=== PATIENT | male | born 1985 | race Caucasian/White ===

== ENCOUNTER → 2016-04-11 | Outpatient (CLI) | payer OTHER ==
[2016-04-11 08:11] LABS: Basophils % (A) 0 %; CH 31.5; Eosinophils % (A) 1 %; HCT 40.9 % (39.0-53.0); HGB 13.9 gm/dL (13.0-17.5); Luc # (Auto) 0.12; Luc % (Auto) 3; Lymphocytes # (A) 1.9 k/uL (1.0-4.8); Lymphocytes % (A) 42 %; MCH 31.8 pg (25.0-35.0); MCHC 34.1 g/dL (31.0-37.0); MCV 93.3 fL (80.0-100.0); Mean Platelet Volume 8.3; Monocytes # (A) 0.4 k/uL (0-1.0); Monocytes % (A) 8 %; Neutrophils # (A) 2.1 k/uL (1.3-7.7); Neutrophils % (A) 47 %; RBC 4.38 m/uL (4.30-5.90); RDW 13.1 % (11.5-15.5); WBC 4.5 k/uL (3.8-10.6); WBC (Perox) 4.92
[2016-04-11 10:31] LABS: ALT 23 U/L (21-72); AST 23 U/L (17-59); Alkaline Phosphatase 53 U/L (38-126); Anion Gap 11 mmol/L; Bilirubin, Delta 0.3 mg/dL (0.0-0.2); Blood Urea Nitrogen 9 mg/dL (9-20); Calcium 8.7 mg/dL (8.4-10.2); Carbon Dioxide 27 mmol/L (22-30); Chloride 104 mmol/L (98-107); Glucose 91 mg/dL (74-99); Non-African American GFR(MDRD) >60 (>60 ml/min/1.73 sqM); Potassium 4.3 mmol/L (3.5-5.1); Sodium 142 mmol/L (137-145); Total Bilirubin 0.8 mg/dL (0.2-1.3); Total Protein 6.6 g/dL (6.3-8.2)
[2016-04-11 11:27] LABS: Prolactin 36.3 ng/mL (3.7-17.9)
== END | disposition home or self-care (01) ==
LOC: LABWHC1 07:43
PROVIDERS: ATTEND Psychiatry & Neurology Psychiatry
DX: T50.905A Adverse effect of unspecified drugs, medicaments and biological substances, initial encounter (principal)
CPT/HCPCS: 36415; 80048; 80076; 80164; 83036; 84146; 85025

== ENCOUNTER → 2016-04-14 | Outpatient (CLI) | payer OTHER | END | disposition home or self-care (01) | LOC: LABWHC1 08:10 | PROVIDERS: ATTEND Psychiatry & Neurology Psychiatry | DX: T50.905A Adverse effect of unspecified drugs, medicaments and biological substances, initial encounter (principal); Z79.899 Other long term (current) drug therapy | CPT/HCPCS: 36415; 80164 ==

== ENCOUNTER → 2016-04-17 | Outpatient (CLI) | payer OTHER | END | disposition home or self-care (01) | LOC: LABWHC1 08:32 | PROVIDERS: ATTEND Psychiatry & Neurology Psychiatry | DX: T50.905A Adverse effect of unspecified drugs, medicaments and biological substances, initial encounter (principal); F63.81 Intermittent explosive disorder; Z79.899 Other long term (current) drug therapy | CPT/HCPCS: 36415; 80164 ==

== ENCOUNTER → 2016-06-05 | Outpatient (CLI) | payer OTHER ==
[2016-06-05 08:29] LABS: Basophils # (A) 0.1 k/uL (0-0.2); Basophils % (A) 2 %; CH 32.1; CHCM 33.3; Eosinophils % (A) 1 %; HCT 44.9 % (39.0-53.0); HDW 2.63; HGB 14.5 gm/dL (13.0-17.5); Luc # (Auto) 0.08; Luc % (Auto) 2; Lymphocytes # (A) 1.8 k/uL (1.0-4.8); Lymphocytes % (A) 38 %; MCH 31.3 pg (25.0-35.0); MCHC 32.3 g/dL (31.0-37.0); MCV 96.7 fL (80.0-100.0); Mean Platelet Volume 7.7; Monocytes # (A) 0.3 k/uL (0-1.0); Monocytes % (A) 7 %; Neutrophils # (A) 2.4 k/uL (1.3-7.7); Neutrophils % (A) 51 %; RBC 4.64 m/uL (4.30-5.90); RDW 13.4 % (11.5-15.5); WBC 4.7 k/uL (3.8-10.6); WBC (Perox) 4.59
[2016-06-05 08:59] LABS: ALT 24 U/L (21-72); AST 31 U/L (17-59); Alkaline Phosphatase 57 U/L (38-126); Anion Gap 11 mmol/L; Blood Urea Nitrogen 9 mg/dL (9-20); Calcium 9.3 mg/dL (8.4-10.2); Carbon Dioxide 27 mmol/L (22-30); Chloride 104 mmol/L (98-107); Glucose 103 mg/dL (74-99); Non-African American GFR(MDRD) >60 (>60 ml/min/1.73 sqM); Sodium 142 mmol/L (137-145); Total Bilirubin 0.8 mg/dL (0.2-1.3); Total Protein 7.2 g/dL (6.3-8.2)
[2016-06-05 11:45] LABS: Hemoglobin A1C 5.2 % (4.2-6.1)
== END | disposition home or self-care (01) ==
LOC: LABWHC1 08:10
PROVIDERS: ATTEND Psychiatry & Neurology Psychiatry
DX: T50.905A Adverse effect of unspecified drugs, medicaments and biological substances, initial encounter (principal)
CPT/HCPCS: 36415; 80053; 83036; 84443; 85025

== ENCOUNTER 2016-06-21 18:24 | Inpatient (IN) | payer MEDICAID, OTHER ==
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
[2016-06-22] MEDS ORDERED: MAGNESIUM HYDROXIDE 2,400 MG/10 ML CUP PO PRN (01:24)
[2016-06-22] MEDS ORDERED: LORazepam 1 MG TAB PO PRN (01:24)
[2016-06-22] MEDS ORDERED: ZIPRASIDONE 20 MG VIAL IM PRN (01:24)
[2016-06-22] MEDS ORDERED: MAG HYDROX/AL HYDROX/SIMETH 30 ML CUP PO PRN (01:24)
[2016-06-22] MEDS ORDERED: ACETAMINOPHEN TAB 325 MG TAB PO PRN (01:24)
[2016-06-22] MEDS ORDERED: DOCUSATE 100 MG CAP PO PRN (01:31)
[2016-06-22] MEDS: DIVALPROEX ER 250 MG TAB.ER.24H PO SCH (09:29)
[2016-06-22] MEDS: PARoxetine 10 MG TAB PO SCH (09:29)
[2016-06-22] MEDS: BENZTROPINE MESYLATE 0.5 MG TAB PO SCH ×2 (09:29→20:43)
[2016-06-22] MEDS: risperiDONE 1 MG TAB PO SCH (09:30)
[2016-06-22] MEDS: PROPRANOLOL 40 MG TAB PO SCH ×3 (09:30→20:42)
[2016-06-22] MEDS: DIVALPROEX ER 500 MG TAB.ER.24H PO SCH ×2 (09:31→20:43)
[2016-06-22 11:18] LABS: Basophils % (A) 0 %; CH 31.8; CHCM 33.2; Eosinophils % (A) 0 %; HCT 42.9 % (39.0-53.0); HDW 2.61; Luc # (Auto) 0.14; Luc % (Auto) 3; Lymphocytes # (A) 1.6 k/uL (1.0-4.8); Lymphocytes % (A) 31 %; MCH 31.6 pg (25.0-35.0); MCHC 32.8 g/dL (31.0-37.0); MCV 96.3 fL (80.0-100.0); Mean Platelet Volume 7.8; Monocytes # (A) 0.5 k/uL (0-1.0); Monocytes % (A) 9 %; Neutrophils % (A) 57 %; RBC 4.45 m/uL (4.30-5.90); RDW 13.4 % (11.5-15.5); WBC 5.3 k/uL (3.8-10.6); WBC (Perox) 5.56
[2016-06-22 11:28] LABS: ALT 25 U/L (21-72); AST 24 U/L (17-59); Alkaline Phosphatase 51 U/L (38-126); Anion Gap 9 mmol/L; Blood Urea Nitrogen 12 mg/dL (9-20); Calcium 9.1 mg/dL (8.4-10.2); Carbon Dioxide 27 mmol/L (22-30); Chloride 105 mmol/L (98-107); Glucose 95 mg/dL (74-99); Non-African American GFR(MDRD) >60 (>60 ml/min/1.73 sqM); Potassium 4.1 mmol/L (3.5-5.1); Sodium 141 mmol/L (137-145)
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
[2016-06-22] MEDS: risperiDONE 2 MG TAB PO SCH (16:37)
[2016-06-22] MEDS: QUEtiapine 100 MG TAB PO SCH (20:43)
[2016-06-23] MEDS: DIVALPROEX ER 500 MG TAB.ER.24H PO SCH ×2 (09:09→21:06)
[2016-06-23] MEDS: DIVALPROEX ER 250 MG TAB.ER.24H PO SCH (09:10)
[2016-06-23] MEDS: PROPRANOLOL 40 MG TAB PO SCH ×3 (09:10→21:06)
[2016-06-23] MEDS: risperiDONE 1 MG TAB PO SCH (09:10)
[2016-06-23] MEDS: BENZTROPINE MESYLATE 0.5 MG TAB PO SCH ×2 (09:10→21:07)
[2016-06-23] MEDS: PARoxetine 10 MG TAB PO SCH (09:10)
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
[2016-06-23] MEDS: risperiDONE 2 MG TAB PO SCH (16:24)
[2016-06-23] MEDS: QUEtiapine 100 MG TAB PO SCH (21:07)
[2016-06-24] MEDS: PROPRANOLOL 40 MG TAB PO SCH ×3 (09:03→21:40)
[2016-06-24] MEDS: BENZTROPINE MESYLATE 0.5 MG TAB PO SCH ×2 (09:03→21:40)
[2016-06-24] MEDS: DIVALPROEX ER 500 MG TAB.ER.24H PO SCH ×2 (09:06→22:03)
[2016-06-24] MEDS: risperiDONE 1 MG TAB PO SCH (09:06)
[2016-06-24] MEDS: DIVALPROEX ER 250 MG TAB.ER.24H PO SCH (09:06)
[2016-06-24] MEDS: PARoxetine 10 MG TAB PO SCH (09:06)
[2016-06-24] MEDS ORDERED: BACITRACIN OINT 1 EACH PACKET TOPICAL ONE ×2 (09:20)
[2016-06-24] MEDS: BACITRACIN 500 UNIT/GM OINT 28.4 GM TUBE TOPICAL PRN (10:45)
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
[2016-06-24] MEDS: risperiDONE 2 MG TAB PO SCH (16:02)
[2016-06-24] MEDS: QUEtiapine 100 MG TAB PO SCH (21:40)
[2016-06-25] MEDS: BENZTROPINE MESYLATE 0.5 MG TAB PO SCH ×2 (09:11→20:41)
[2016-06-25] MEDS: PROPRANOLOL 40 MG TAB PO SCH ×3 (09:11→20:41)
[2016-06-25] MEDS: risperiDONE 1 MG TAB PO SCH (09:12)
[2016-06-25] MEDS: PARoxetine 10 MG TAB PO SCH (09:13)
[2016-06-25] MEDS: DIVALPROEX ER 250 MG TAB.ER.24H PO SCH (09:13)
[2016-06-25] MEDS: DIVALPROEX ER 500 MG TAB.ER.24H PO SCH ×2 (09:14→20:41)
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
[2016-06-25] MEDS: risperiDONE 2 MG TAB PO SCH (16:26)
[2016-06-25] MEDS: QUEtiapine 100 MG TAB PO SCH (20:41)
[2016-06-26] MEDS: DIVALPROEX ER 500 MG TAB.ER.24H PO SCH ×2 (09:40→20:43)
[2016-06-26] MEDS: risperiDONE 1 MG TAB PO SCH (09:40)
[2016-06-26] MEDS: DIVALPROEX ER 250 MG TAB.ER.24H PO SCH (09:40)
[2016-06-26] MEDS: BENZTROPINE MESYLATE 0.5 MG TAB PO SCH ×2 (09:40→20:43)
[2016-06-26] MEDS: PARoxetine 10 MG TAB PO SCH (09:40)
[2016-06-26] MEDS: PROPRANOLOL 40 MG TAB PO SCH ×3 (09:41→20:43)
--- NOTE | 2016-06-26 13:24 | P.PN ---
Progress Note - Text SUBJECTIVE: I reviewed the medical record, interviewed Mr. Ac and discuss his treatment and treatment plan during team meeting. He was distressed during interview and perseverated on not being able to return to work [employer] home. He repeatedly asked where he would be living and when he would be discharged. At times he became acutely distressed, began sobbing and rocking back and forth in his chair. He briefly appeared to become angry and I felt concerned that he may act out but he kept his behavior control. OBJECTIVE: He presented as a casually groomed tall 30-year-old male wearing pajamas and a nightgown. He carried 2 books and the stuffed curious René doll in his arms. He did not make eye contact and times did not appear to attend to the interview. He drooled during the interview and the drooling worsened when he became more distressed. He was intermittently agitated and restless. His speech was spontaneous, dysarthric and difficult to understand. His affect was labile and at times intense. He cried intermittently during the interview. He did not express suicidal ideation, wishes or homicidal ideation. He ruminated about placement and his living situations. His thinking was concrete and associations were not fully coherent and logical. He did not appear to be responding to internal stimuli. He attends therapeutic groups and activities. He slept 6 hours last night. ASSESSMENT: He kept his behavior and control and has had no periods of aggression. He is distressed that he may not return to his [facility] home. PLAN: Continue inpatient hospitalization pending disposition. Continue his psychotropic medications: Cogentin 0.5 mg at 8:00 and 21:00, Depakote ER 250 mg at 8:00 1,000 mg at 8:00 and 21:00, lorazepam 1 mg by mouth 3 times a day when necessary agitation, Paxil 30 mg daily 8:00, Inderal 80 mg by mouth twice a day and 40 mg by mouth at 16:00, Seroquel 100 mg at bedtime, Risperdal 1 mg daily at 8:00 and 2 mg by mouth daily at 16:00. Continue suicide precautions with 15 minute checks. Encourage participation in therapeutic groups and activities. Evaluate clinical status response to treatment on a daily basis.
[2016-06-26] MEDS: risperiDONE 2 MG TAB PO SCH (16:13)
[2016-06-26] MEDS: QUEtiapine 100 MG TAB PO SCH (20:44)
[2016-06-26] MEDS: BACITRACIN 500 UNIT/GM OINT 28.4 GM TUBE TOPICAL PRN (21:32)
[2016-06-27] MEDS: risperiDONE 1 MG TAB PO SCH (08:37)
[2016-06-27] MEDS: BENZTROPINE MESYLATE 0.5 MG TAB PO SCH ×2 (08:37→21:39)
[2016-06-27] MEDS: DIVALPROEX ER 500 MG TAB.ER.24H PO SCH ×2 (08:37→21:38)
[2016-06-27] MEDS: PARoxetine 10 MG TAB PO SCH (08:37)
[2016-06-27] MEDS: PROPRANOLOL 40 MG TAB PO SCH ×3 (08:37→21:38)
[2016-06-27] MEDS: DIVALPROEX ER 250 MG TAB.ER.24H PO SCH (08:37)
[2016-06-27 11:11] VITALS: BMI 30.2
--- NOTE | 2016-06-27 13:46 | P.PN ---
Progress Note - Text SUBJECTIVE: The medical record, interviewed Mr. Ac and discussed his treatment and treatment plan during team meeting. He denied problems and concerns of and wishing to "go home". She did not cry during our interview as he did yesterday. OBJECTIVE: He presented as a casually groomed tall 30-year-old male wearing his pajamas and nightgown. He carried 2 books and the stuffed curious René doll in his arms. He did not make eye contact but appeared to attend to the interview. He drooled during the interview. His gait was slow and shuffling. He was not agitated or restless. He had no abnormal involuntary movements.. His speech was spontaneous, dysarthric and difficult to understand. His affect was depressed but reactive. He did not express suicidal ideation, wishes or homicidal ideation. He ruminated about placement and his living situations. His thinking was concrete and associations were not fully coherent and logical. He did not appear to be responding to internal stimuli. He is shown episodes of behavioral dyscontrol, agitation or aggression of last 24 hours. According to the [facility] liaison a [facility] home bed is not available. ASSESSMENT: He has kept his behavior and control and has shown no periods of aggression, agitation or assaultive behavior. He is cognitively limited but pleasant and participates in activities. PLAN: Continue inpatient hospitalization pending disposition. Continue his psychotropic medications: Cogentin 0.5 mg at 8:00 and 21:00, Depakote ER 250 mg at 8:00 1,000 mg at 8:00 and 21:00, lorazepam 1 mg by mouth 3 times a day when necessary agitation, Paxil 30 mg daily 8:00, Inderal 80 mg by mouth twice a day and 40 mg by mouth at 16:00, Seroquel 100 mg at bedtime, Risperdal 1 mg daily at 8:00 and 2 mg by mouth daily at 16:00. Continue suicide precautions with 15 minute checks. Encourage participation in therapeutic groups and activities. Evaluate clinical status response to treatment on a daily basis.
[2016-06-27] MEDS: risperiDONE 2 MG TAB PO SCH (16:29)
[2016-06-27] MEDS: QUEtiapine 100 MG TAB PO SCH (21:39)
--- NOTE | 2016-06-28 09:03 | P.PN ---
Progress Note - Text Interval history: The patient is found in the hallway he follows me to an interview room. He reports his mood is fine. He reports no feelings of anger or irritability. He feels that he slept throughout the night appetite is stable. He is concerned asked to where he will be discharged. He states he has not been participating in any self-injurious behavior such as biting himself. Mental status exam: The patient is a male dressed in pajamas and a bathrobe. He is carrying his belongings with him. He appears tired but not lethargic. He is noted to drool during the session. He reports no thoughts of self injury or suicidal ideation intent or plan he reports no homicidal ideation intent or plan. He is endorsing no auditory or visual hallucinations. He states he feels safe in the hospital. He seated calmly in the chair he does not appear hypomanic or manic. He does appear to be intellectually impaired thought process is fairly concrete. Insight and judgment is chronically impaired. Affect is blunted he demonstrates no verbal or physical aggressiveness. Plan: The patient will continue on his current medications he is on several psychotropics. Vital signs reviewed they are on the lower end of normal likely due to the propranolol. It appears that he has been able to successfully refrain from any aggressive behavior lately. We will continue to monitor him for safety.
[2016-06-28] MEDS: BENZTROPINE MESYLATE 0.5 MG TAB PO SCH ×2 (09:34→20:38)
[2016-06-28] MEDS: risperiDONE 1 MG TAB PO SCH (09:35)
[2016-06-28] MEDS: DIVALPROEX ER 250 MG TAB.ER.24H PO SCH (09:35)
[2016-06-28] MEDS: PROPRANOLOL 40 MG TAB PO SCH ×3 (09:35→20:38)
[2016-06-28] MEDS: DIVALPROEX ER 500 MG TAB.ER.24H PO SCH ×2 (09:35→20:38)
[2016-06-28] MEDS: PARoxetine 10 MG TAB PO SCH (10:31)
[2016-06-28] MEDS: BACITRACIN 500 UNIT/GM OINT 28.4 GM TUBE TOPICAL PRN ×2 (10:33→15:54)
[2016-06-28 12:57] LABS: Appearance,Urine Clear (Clear); Bilirubin,Urine Negative (Negative); Glucose,Urine (UA) Negative (Negative); Ketones,Urine Negative (Negative); Leukocyte Esterase,Urine Negative (Negative); Nitrite,Urine Negative (Negative); Protein,Urine Negative (Negative); UA Billing (MACRO vs. MICRO) CHEM; Urobilinogen,Urine <2.0 mg/dL (<2.0)
[2016-06-28] MEDS: risperiDONE 2 MG TAB PO SCH (15:44)
[2016-06-28] MEDS: QUEtiapine 100 MG TAB PO SCH (20:38)
[2016-06-29] MEDS: BENZTROPINE MESYLATE 0.5 MG TAB PO SCH (09:52)
[2016-06-29] MEDS: PARoxetine 10 MG TAB PO SCH (09:54)
[2016-06-29] MEDS: DIVALPROEX ER 500 MG TAB.ER.24H PO SCH ×2 (09:54→21:32)
[2016-06-29] MEDS: DIVALPROEX ER 250 MG TAB.ER.24H PO SCH (09:54)
[2016-06-29] MEDS: risperiDONE 1 MG TAB PO SCH (09:55)
[2016-06-29] MEDS: PROPRANOLOL 40 MG TAB PO SCH ×3 (09:55→21:32)
--- NOTE | 2016-06-29 10:14 | P.PN ---
Progress Note - Text Interval history: The patient is found in his room he follows me to an interview room. He reports having no symptoms and asks if we have found him placement. The patient was observed ambulating in the hallway earlier this morning. He has been compliant with medication. He has no questions regarding medication. Vital signs reviewed they are within normal limits. Mental status exam: The patient is an overweight male he is dressed in pajamas and wearing a bathrobe over top he is carrying a book a curious René stuffed animal and a couple of water. Eye contact is intermittent he often looks down. He appears tired this morning. He is actively drooling during our session. He has no spontaneous speech but does answer questions briefly. He is endorsing no symptoms of psychosis he does not appear hypomanic or manic. He seated calmly in the chair there is a mild element of psychomotor slowing he demonstrates no verbal or physical aggressiveness. Insight and judgment are chronically impaired secondary to intellectual disability. Plan: The patient will continue on his current medication I will titrate the Cogentin to 1 mg twice daily. We will continue monitoring him for safety and encourage participation in the milieu.
[2016-06-29] MEDS: risperiDONE 2 MG TAB PO SCH (16:13)
[2016-06-29] MEDS: QUEtiapine 100 MG TAB PO SCH (21:32)
[2016-06-29] MEDS: BENZTROPINE MESYLATE 1 MG TAB PO SCH (21:33)
[2016-06-30] MEDS: DIVALPROEX ER 250 MG TAB.ER.24H PO SCH (09:32)
[2016-06-30] MEDS: DIVALPROEX ER 500 MG TAB.ER.24H PO SCH ×2 (09:32→20:43)
[2016-06-30] MEDS: risperiDONE 1 MG TAB PO SCH (09:32)
[2016-06-30] MEDS: PARoxetine 10 MG TAB PO SCH (09:32)
[2016-06-30] MEDS: BENZTROPINE MESYLATE 1 MG TAB PO SCH ×2 (09:33→20:43)
[2016-06-30] MEDS: PROPRANOLOL 40 MG TAB PO SCH ×3 (09:33→20:44)
--- NOTE | 2016-06-30 13:07 | P.PN ---
Progress Note - Text SUBJECTIVE: I reviewed the medical record, interviewed Mr. Whitmore and discuss his treatment and treatment plan during team meeting. His only concern remains discharge and again asked what he would "go home". He appeared satisfied with my answer that we are awaiting [facility] to to find him a new skilled nursing. OBJECTIVE: He presented as a casually groomed tall 30-year-old male wearing his pajamas and nightgown. He carried 1 book and the stuffed curious René doll in his arms. He did not make eye contact but appeared to attend to the interview. He drooled during the interview. His gait was slow and shuffling. He was not agitated or restless. He had no abnormal involuntary movements.. His speech was spontaneous, dysarthric and difficult to understand. His affect was depressed but reactive. He did not express suicidal ideation, wishes or homicidal ideation. He ruminated about placement and his living situations. His thinking was concrete and associations were not fully coherent and logical. He did not appear to be responding to internal stimuli. He is shown episodes of behavioral dyscontrol, agitation or aggression of last 24 hours. According to the [facility] liaison a [facility] home bed still is not available. ASSESSMENT: He has kept his behavior and control and has shown no periods of aggression, agitation or assaultive behavior. He is cognitively limited but pleasant and participates in activities. PLAN: Continue inpatient hospitalization pending disposition. Continue his psychotropic medications: Cogentin 0.5 mg at 8:00 and 21:00, Depakote ER 250 mg at 8:00 1,000 mg at 8:00 and 21:00, lorazepam 1 mg by mouth 3 times a day when necessary agitation, Paxil 30 mg daily 8:00, Inderal 80 mg by mouth twice a day and 40 mg by mouth at 16:00, Seroquel 100 mg at bedtime, Risperdal 1 mg daily at 8:00 and 2 mg by mouth daily at 16:00. Continue suicide precautions with 15 minute checks. Encourage participation in therapeutic groups and activities. Evaluate clinical status response to treatment on a daily basis.
[2016-06-30] MEDS: QUEtiapine 100 MG TAB PO SCH (20:44)
[2016-07-01 06:33] VITALS: RESP 16
[2016-07-01] MEDS: PROPRANOLOL 40 MG TAB PO SCH ×3 (10:03→21:47)
[2016-07-01] MEDS: risperiDONE 1 MG TAB PO SCH (10:06)
[2016-07-01] MEDS: PARoxetine 10 MG TAB PO SCH (10:06)
[2016-07-01] MEDS: DIVALPROEX ER 500 MG TAB.ER.24H PO SCH ×2 (10:06→21:47)
[2016-07-01] MEDS: DIVALPROEX ER 250 MG TAB.ER.24H PO SCH (10:07)
[2016-07-01] MEDS: BENZTROPINE MESYLATE 1 MG TAB PO SCH ×2 (10:07→21:47)
--- NOTE | 2016-07-01 13:07 | P.PN ---
Progress Note - Text SUBJECTIVE: I reviewed the medical record, interviewed Mr. Ac and discuss his treatment and treatment plan during team meeting. His again asked what he would "go home". He appeared satisfied with my answer that we are awaiting [facility] to to find him a new [place] [facility] [place] facility. OBJECTIVE: He presented as a casually groomed tall 30-year-old male wearing his pajamas and nightgown. He carried 1 book and the stuffed curious René doll in his arms. He did not make eye contact but appeared to attend to the interview. He drooled during the interview. His gait was slow and shuffling. He was not agitated or restless. He had no abnormal involuntary movements.. His speech was spontaneous, dysarthric and difficult to understand. His affect was depressed but reactive. He did not express suicidal ideation, wishes or homicidal ideation. He ruminated about placement and his living situations. His thinking was concrete and associations were not fully coherent and logical. He did not appear to be responding to internal stimuli. He is shown episodes of behavioral dyscontrol, agitation or aggression of last 24 hours. . ASSESSMENT: He has kept his behavior and control and has shown no periods of aggression, agitation or assaultive behavior. He is cognitively limited but pleasant and participates in activities. PLAN: Continue inpatient hospitalization pending disposition. Continue his psychotropic medications: Cogentin 0.5 mg at 8:00 and 21:00, Depakote ER 250 mg at 8:00 1,000 mg at 8:00 and 21:00, lorazepam 1 mg by mouth 3 times a day when necessary agitation, Paxil 30 mg daily 8:00, Inderal 80 mg by mouth twice a day and 40 mg by mouth at 16:00, Seroquel 100 mg at bedtime, Risperdal 1 mg daily at 8:00 and 2 mg by mouth daily at 16:00. Continue suicide precautions with 15 minute checks. Encourage participation in therapeutic groups and activities. Evaluate clinical status response to treatment on a daily basis.
[2016-07-01] MEDS: risperiDONE 2 MG TAB PO SCH (18:02)
[2016-07-01] MEDS: QUEtiapine 100 MG TAB PO SCH (21:48)
[2016-07-02] MEDS: PROPRANOLOL 40 MG TAB PO SCH ×3 (09:24→21:28)
[2016-07-02] MEDS: DIVALPROEX ER 500 MG TAB.ER.24H PO SCH ×2 (09:26→20:44)
[2016-07-02] MEDS: DIVALPROEX ER 250 MG TAB.ER.24H PO SCH (09:26)
[2016-07-02] MEDS: PARoxetine 10 MG TAB PO SCH (09:26)
[2016-07-02] MEDS: risperiDONE 1 MG TAB PO SCH (09:26)
[2016-07-02] MEDS: BENZTROPINE MESYLATE 1 MG TAB PO SCH ×2 (09:28→20:44)
--- NOTE | 2016-07-02 13:33 | P.PN ---
Progress Note - Text SUBJECTIVE: I reviewed the medical record, interviewed Quincy and discuss his treatment and treatment plan during team meeting. He expressed frustration over continued hospitalization. He wishes to be discharged and returned "home" . He repeatedly asked me when he be discharged. OBJECTIVE: Appetite presented as a casually groomed 30-year-old male dressed in pajamas and a bathrobe. He was pleasant on approach and only made intermittent eye contact. He had no distinguishing features or prominent physical abnormalities. He had a blunted facial expression. He showed psychomotor retardation. As in prior interviews, he told his. His speech was not spontaneous. His affect was blunted but stable. He denied suicidal ideation or wishes. He did not express feelings of helplessness, hopelessness or worthlessness. He did not express phobias, ideas reference or paranoid ideation. His thinking was concrete and associations are fully coherent or logical. He showed no episodes of behavioral dyscontrol. ASSESSMENT: He is impaired as a result of his intellectual disability. He has difficulty understanding the reasons that we are unable to discharge him. PLAN: Continue inpatient hospitalization pending disposition. Continue his psychotropic medications: Cogentin 0.5 mg at 8:00 and 21:00, Depakote ER 250 mg at 8:00 1,000 mg at 8:00 and 21:00, lorazepam 1 mg by mouth 3 times a day when necessary agitation, Paxil 30 mg daily 8:00, Inderal 80 mg by mouth twice a day and 40 mg by mouth at 16:00, Seroquel 100 mg at bedtime, Risperdal 1 mg daily at 8:00 and 2 mg by mouth daily at 16:00. Continue suicide precautions with 15 minute checks. Encourage participation in therapeutic groups and activities. Evaluate clinical status response to treatment on a daily basis.
[2016-07-02] MEDS: risperiDONE 2 MG TAB PO SCH (16:56)
[2016-07-02] MEDS: QUEtiapine 100 MG TAB PO SCH (20:44)
[2016-07-03] MEDS: PARoxetine 10 MG TAB PO SCH (09:41)
[2016-07-03] MEDS: BENZTROPINE MESYLATE 1 MG TAB PO SCH ×2 (09:42→21:34)
[2016-07-03] MEDS: DIVALPROEX ER 250 MG TAB.ER.24H PO SCH (09:42)
[2016-07-03] MEDS: PROPRANOLOL 40 MG TAB PO SCH ×3 (09:42→21:34)
[2016-07-03] MEDS: risperiDONE 1 MG TAB PO SCH (09:42)
[2016-07-03] MEDS: DIVALPROEX ER 500 MG TAB.ER.24H PO SCH ×2 (10:04→21:34)
--- NOTE | 2016-07-03 13:43 | P.PN ---
Progress Note - Text SUBJECTIVE: I reviewed the medical record, interviewed Max and discuss his treatment and treatment plan during team meeting. He was excited because he thought he was to be discharged today. OBJECTIVE: He presented as a casually groomed 30-year-old male dressed in pajamas and a bathrobe. He was pleasant on approach and only made intermittent eye contact. He had no distinguishing features or prominent physical abnormalities. He had a blunted facial expression. He showed psychomotor retardation. As in prior interviews, he told his. His speech was not spontaneous. His affect was blunted but stable. He denied suicidal ideation or wishes. He did not express feelings of helplessness, hopelessness or worthlessness. He did not express phobias, ideas reference or paranoid ideation. His thinking was concrete and associations are fully coherent or logical. He showed no episodes of behavioral dyscontrol. The [facility] liaison had no update on placement. ASSESSMENT: He is impaired as a result of his intellectual disability. He has difficulty understanding the reasons that we are unable to discharge him. PLAN: Continue inpatient hospitalization pending disposition. Continue his psychotropic medications: Cogentin 0.5 mg at 8:00 and 21:00, Depakote ER 250 mg at 8:00 1,000 mg at 8:00 and 21:00, lorazepam 1 mg by mouth 3 times a day when necessary agitation, Paxil 30 mg daily 8:00, Inderal 80 mg by mouth twice a day and 40 mg by mouth at 16:00, Seroquel 100 mg at bedtime, Risperdal 1 mg daily at 8:00 and 2 mg by mouth daily at 16:00. Continue suicide precautions with 15 minute checks. Encourage participation in therapeutic groups and activities. Evaluate clinical status response to treatment on a daily basis.
[2016-07-03] MEDS: risperiDONE 2 MG TAB PO SCH (17:37)
[2016-07-03] MEDS: QUEtiapine 100 MG TAB PO SCH (21:34)
[2016-07-04 07:03] VITALS: TEMP 97.8
[2016-07-04] MEDS: DIVALPROEX ER 250 MG TAB.ER.24H PO SCH (09:26)
[2016-07-04] MEDS: DIVALPROEX ER 500 MG TAB.ER.24H PO SCH (09:26)
[2016-07-04] MEDS: risperiDONE 1 MG TAB PO SCH (09:27)
[2016-07-04] MEDS: BENZTROPINE MESYLATE 1 MG TAB PO SCH (09:27)
[2016-07-04] MEDS: PROPRANOLOL 40 MG TAB PO SCH (09:27)
[2016-07-04] MEDS: PARoxetine 10 MG TAB PO SCH (09:27)
[2016-07-04 09:30] VITALS: BP 118/63; PULSE 83
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
== END 2016-07-04 11:29 | disposition home or self-care (01) | DRG 883 ==
LOC: EC 18:24 → 3MHU 22:54
PROVIDERS: ADMIT Psychiatry & Neurology Psychiatry; ATTEND Psychiatry & Neurology Psychiatry
DX: F63.81 Intermittent explosive disorder (principal); F72 Severe intellectual disabilities; F90.9 Attention-deficit hyperactivity disorder, unspecified type; K59.09 Other constipation; Q99.2 Fragile X chromosome; S60.512A Abrasion of left hand, initial encounter; Z79.899 Other long term (current) drug therapy
CPT/HCPCS: 80053; 80164; 80306; 81003; 82075; 84443; 85025

== ENCOUNTER → 2019-12-07 | Outpatient (CLI) | payer OTHER | END | disposition home or self-care (01) | LOC: LABWHC1 13:40 | PROVIDERS: ATTEND Family Medicine | DX: Z03.818 Encounter for observation for suspected exposure to other biological agents ruled out (principal) | CPT/HCPCS: U0003; C9803 ==

== ENCOUNTER 2021-07-06 15:00 | Emergency (ER) | payer OTHER ==
[2021-07-06 15:57] VITALS: BP 102/68; PULSE 97; RESP 16; TEMP 97.9
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
== END 2021-07-06 20:07 | disposition home or self-care (01) ==
LOC: EC 15:00 → EEVIPCON 15:00 → SUPCPDRO 15:00 → EC 20:07
DX: R45.4 Irritability and anger (principal); Z20.822 Contact with and (suspected) exposure to COVID-19
CPT/HCPCS: 36415; 80164; 82075; 87635; 99284

== ENCOUNTER 2021-07-10 15:09 | Emergency (ER) | payer OTHER ==
[2021-07-10] MEDS ORDERED: BACITRACIN OINT 1 EACH PACKET TOPICAL ONE (15:55)
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
[2021-07-10] MEDS ORDERED: PROPRANOLOL 40 MG TAB PO PRN (20:00)
[2021-07-10] MEDS: DIVALPROEX ER 500 MG TAB.ER.24H PO SCH (21:45)
[2021-07-10] MEDS: DESMOPRESSIN 0.2 MG TAB PO SCH (21:45)
[2021-07-10] MEDS: cloZAPine 100 MG TAB PO SCH (21:46)
[2021-07-10] MEDS: LORazepam 1 MG TAB PO SCH (21:47)
[2021-07-10] MEDS: DOCUSATE 100 MG CAP PO SCH (21:47)
[2021-07-10] MEDS: GLYCOPYRROLATE 2 MG PO SCH (21:48)
[2021-07-11] MEDS: GLYCOPYRROLATE 2 MG PO SCH (08:43)
[2021-07-11] MEDS: DIVALPROEX ER 500 MG TAB.ER.24H PO SCH ×2 (16:15→21:40)
[2021-07-11] MEDS: PARoxetine 10 MG TAB PO SCH (16:15)
[2021-07-11] MEDS: LORazepam 1 MG TAB PO SCH ×2 (16:15→21:40)
[2021-07-11] MEDS: DOCUSATE 100 MG CAP PO SCH (21:38)
[2021-07-11] MEDS: cloZAPine 100 MG TAB PO SCH ×2 (21:39→22:16)
[2021-07-11] MEDS: DESMOPRESSIN 0.2 MG TAB PO SCH (22:16)
[2021-07-12] MEDS: GLYCOPYRROLATE 2 MG PO SCH (05:50)
[2021-07-12] MEDS: LORazepam 1 MG TAB PO SCH ×4 (05:51→17:56)
[2021-07-12 05:52] LABS: Glucose,Whole Blood 93 mg/dL (75-99)
[2021-07-12] MEDS: PARoxetine 10 MG TAB PO SCH (11:37)
[2021-07-12] MEDS: DIVALPROEX ER 500 MG TAB.ER.24H PO SCH (11:38)
[2021-07-13] MEDS: DESMOPRESSIN 0.2 MG TAB PO SCH (01:11)
[2021-07-13] MEDS: DOCUSATE 100 MG CAP PO SCH ×2 (01:11→20:47)
[2021-07-13] MEDS: PARoxetine 10 MG TAB PO SCH (01:12)
[2021-07-13] MEDS: LORazepam 1 MG TAB PO SCH ×3 (01:12→20:47)
[2021-07-13] MEDS: DIVALPROEX ER 500 MG TAB.ER.24H PO SCH ×3 (01:12→20:47)
[2021-07-13] MEDS: GLYCOPYRROLATE 2 MG PO SCH ×2 (08:38→09:26)
[2021-07-13] MEDS: cloZAPine 100 MG TAB PO SCH (20:47)
[2021-07-14] MEDS: DESMOPRESSIN 0.2 MG TAB PO SCH ×2 (07:15→21:56)
[2021-07-14] MEDS: GLYCOPYRROLATE 2 MG PO SCH ×2 (07:16→09:48)
[2021-07-14] MEDS: LORazepam 1 MG TAB PO SCH ×4 (07:29→21:56)
[2021-07-14] MEDS: PARoxetine 10 MG TAB PO SCH (09:47)
[2021-07-14] MEDS: DIVALPROEX ER 500 MG TAB.ER.24H PO SCH ×2 (09:48→21:55)
[2021-07-14] MEDS: cloZAPine 100 MG TAB PO SCH (21:56)
[2021-07-14] MEDS: DOCUSATE 100 MG CAP PO SCH (21:56)
[2021-07-15] MEDS: GLYCOPYRROLATE 2 MG PO SCH (09:00)
[2021-07-15] MEDS: PARoxetine 10 MG TAB PO SCH (09:41)
[2021-07-15] MEDS: DIVALPROEX ER 500 MG TAB.ER.24H PO SCH ×2 (09:41→20:42)
[2021-07-15] MEDS: LORazepam 1 MG TAB PO SCH ×2 (18:12→20:42)
[2021-07-15] MEDS: cloZAPine 100 MG TAB PO SCH (20:41)
[2021-07-15] MEDS: DOCUSATE 100 MG CAP PO SCH (20:42)
[2021-07-15] MEDS: DESMOPRESSIN 0.2 MG TAB PO SCH (22:40)
[2021-07-16] MEDS: GLYCOPYRROLATE 2 MG PO SCH ×3 (00:49→07:56)
[2021-07-16] MEDS ORDERED: PROPRANOLOL 40 MG TAB PO PRN (08:27)
[2021-07-16] MEDS: LORazepam 1 MG TAB PO SCH ×3 (08:37→20:54)
[2021-07-16] MEDS: PARoxetine 10 MG TAB PO SCH (08:37)
[2021-07-16] MEDS: DIVALPROEX ER 500 MG TAB.ER.24H PO SCH ×2 (08:38→20:55)
[2021-07-16] MEDS: cloZAPine 100 MG TAB PO SCH (20:54)
[2021-07-16] MEDS: DOCUSATE 100 MG CAP PO SCH (20:54)
[2021-07-16] MEDS: DESMOPRESSIN 0.2 MG TAB PO SCH (21:59)
[2021-07-17] MEDS: LORazepam 1 MG TAB PO SCH ×3 (08:12→19:52)
[2021-07-17] MEDS: DIVALPROEX ER 500 MG TAB.ER.24H PO SCH ×2 (08:13→19:52)
[2021-07-17] MEDS: PARoxetine 10 MG TAB PO SCH (08:13)
[2021-07-17] MEDS: GLYCOPYRROLATE 2 MG PO SCH ×2 (08:16→19:27)
[2021-07-17] MEDS: DOCUSATE 100 MG CAP PO SCH (19:52)
[2021-07-17] MEDS: cloZAPine 100 MG TAB PO SCH (19:52)
[2021-07-17] MEDS: DESMOPRESSIN 0.2 MG TAB PO SCH (19:52)
[2021-07-18] MEDS: PARoxetine 10 MG TAB PO SCH (08:03)
[2021-07-18] MEDS: LORazepam 1 MG TAB PO SCH ×3 (08:03→20:18)
[2021-07-18] MEDS: DIVALPROEX ER 500 MG TAB.ER.24H PO SCH ×2 (08:03→20:18)
[2021-07-18] MEDS: GLYCOPYRROLATE 2 MG PO SCH ×2 (08:04→20:20)
[2021-07-18 20:16] VITALS: TEMP 98.7
[2021-07-18] MEDS: cloZAPine 100 MG TAB PO SCH (20:18)
[2021-07-18] MEDS: DOCUSATE 100 MG CAP PO SCH (20:18)
[2021-07-18] MEDS: DESMOPRESSIN 0.2 MG TAB PO SCH (20:20)
[2021-07-18 20:50] LABS: Basophils % (A) 1 %; Eosinophils % (A) 0 %; HCT 40.9 % (39.0-53.0); HGB 13.2 gm/dL (13.0-17.5); Lymphocytes # (A) 2.3 k/uL (1.0-4.8); Lymphocytes % (A) 38 %; MCH 29.8 pg (25.0-35.0); MCHC 32.1 g/dL (31.0-37.0); MCV 92.8 fL (80.0-100.0); Mean Platelet Volume 8.3; Monocytes # (A) 0.5 k/uL (0-1.0); Monocytes % (A) 8 %; Neutrophils # (A) 3.1 k/uL (1.3-7.7); Neutrophils % (A) 51 %; Platelet Count 184 k/uL (150-450); RBC 4.41 m/uL (4.30-5.90); RDW 14.2 % (11.5-15.5)
[2021-07-19] MEDS: GLYCOPYRROLATE 2 MG PO SCH (07:18)
[2021-07-19] MEDS: LORazepam 1 MG TAB PO SCH (08:06)
[2021-07-19] MEDS: PARoxetine 10 MG TAB PO SCH (08:07)
[2021-07-19] MEDS: DIVALPROEX ER 500 MG TAB.ER.24H PO SCH (08:08)
[2021-07-19 13:57] VITALS: BP 110/75; PULSE 110; RESP 18
[2021-07-19] MEDS ORDERED: LORazepam 1 MG TAB PO SCH (16:00)
[2021-07-19] MEDS ORDERED: DOCUSATE 100 MG CAP PO SCH (20:00)
[2021-07-19] MEDS ORDERED: DIVALPROEX ER 500 MG TAB.ER.24H PO SCH (20:00)
[2021-07-19] MEDS ORDERED: DESMOPRESSIN 0.2 MG TAB PO SCH (20:00)
[2021-07-19] MEDS ORDERED: cloZAPine 100 MG TAB PO SCH ×2 (20:00)
[2021-07-20] MEDS ORDERED: PARoxetine 10 MG TAB PO SCH (08:00)
== END 2021-07-19 13:52 | disposition home or self-care (01) ==
LOC: EC 15:09
DX: R45.1 Restlessness and agitation (principal)
CPT/HCPCS: 82075; 99285; S0136 ×6

== ENCOUNTER 2023-02-07 19:46 | Emergency (ER) | payer OTHER ==
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
[2023-02-08 01:55] LABS: Basophils % (A) 0 %; Eosinophils % (A) 0 %; HCT 42.6 % (39.0-53.0); HGB 14.5 gm/dL (13.0-17.5); Lymphocytes # (A) 2.8 k/uL (1.0-4.8); Lymphocytes % (A) 45 %; MCH 30.7 pg (25.0-35.0); MCHC 34.1 g/dL (31.0-37.0); Mean Platelet Volume 7.6; Monocytes # (A) 0.5 k/uL (0-1.0); Monocytes % (A) 8 %; Neutrophils # (A) 2.8 k/uL (1.3-7.7); Neutrophils % (A) 46 %; Platelet Count 138 k/uL (150-450); RBC 4.74 m/uL (4.30-5.90); RDW 13.7 % (11.5-15.5); WBC 6.2 k/uL (3.8-10.6)
[2023-02-08 02:01] LABS: ALT 15 U/L (4-49); AST 20 U/L (17-59); African American GFR (CKD) >90 (>60 ml/min/1.73 sqM); Albumin 4.1 g/dL (3.5-5.0); Alkaline Phosphatase 73 U/L (38-126); Anion Gap 13 mmol/L; Blood Urea Nitrogen 13 mg/dL (9-20); Calcium 9.2 mg/dL (8.4-10.2); Carbon Dioxide 22 mmol/L (22-30); Chloride 105 mmol/L (98-107); Glucose 95 mg/dL (74-99); Non-African American GFR(CKD) >90 (>60 ml/min/1.73 sqM); Potassium 4.2 mmol/L (3.5-5.1); Sodium 140 mmol/L (137-145); Total Bilirubin 0.4 mg/dL (0.2-1.3); Total Protein 6.9 g/dL (6.3-8.2)
[2023-02-08] MEDS: DIVALPROEX ER 250 MG TAB.ER.24H PO SCH (08:25)
[2023-02-08] MEDS: cloZAPine 25 MG TAB PO SCH (08:25)
[2023-02-08] MEDS: DIVALPROEX ER 500 MG TAB.ER.24H PO SCH ×2 (08:25→21:20)
[2023-02-08] MEDS: BENZTROPINE MESYLATE 1 MG TAB PO SCH ×2 (08:25→21:20)
[2023-02-08] MEDS: cloZAPine 100 MG TAB PO SCH (21:20)
[2023-02-09] MEDS: DIVALPROEX ER 500 MG TAB.ER.24H PO SCH ×2 (10:59→21:12)
[2023-02-09] MEDS: BENZTROPINE MESYLATE 1 MG TAB PO SCH ×2 (10:59→22:14)
[2023-02-09] MEDS: cloZAPine 25 MG TAB PO SCH (10:59)
[2023-02-09] MEDS: DIVALPROEX ER 250 MG TAB.ER.24H PO SCH (10:59)
[2023-02-09 19:07] LABS: Appearance,Urine Clear (Clear); Bilirubin,Urine Negative (Negative); Blood,Urine Negative (Negative); Color,Urine Yellow; Glucose,Urine (UA) Negative (Negative); Ketones,Urine 1+ (Negative); Leukocyte Esterase,Urine Negative (Negative); Mucus,Urine Many /hpf; Nitrite,Urine Negative (Negative); PH, Urine 6.5 (5.0-8.0); Protein,Urine 1+ (Negative); RBC,Urine 1 /hpf (0-5); Specific Gravity,Urine 1.029 (1.001-1.035); Squamous Epithelial Cell,Urine <1 /hpf (0-4); WBC,Urine 4 /hpf (0-5)
[2023-02-09 19:30] LABS: Amphetamine Screen,Urine Not Detected (NotDetected); Cocaine Screen,Urine Not Detected (NotDetected); Opiate Screen,Urine Not Detected (NotDetected); Phencyclidine Screen,Urine Not Detected (NotDetected); Urn Cannabinoid Scrn Not Detected (NotDetected)
[2023-02-09 19:31] LABS: Barbiturate Screen,Urine Not Detected (NotDetected); Benzodiazepines Screen,Urine Detected (NotDetected); Methadone Screen, Urine Not Detected (NotDetected); Oxycodone Screen, Urine Not Detected (NotDetected); Tricyclic Antidepressant,Urine Detected (NotDetected)
[2023-02-09] MEDS: cloZAPine 100 MG TAB PO SCH (21:12)
[2023-02-10] MEDS: cloZAPine 25 MG TAB PO SCH (08:44)
[2023-02-10] MEDS: DIVALPROEX ER 500 MG TAB.ER.24H PO SCH ×2 (08:44→20:36)
[2023-02-10] MEDS: DIVALPROEX ER 250 MG TAB.ER.24H PO SCH (08:44)
[2023-02-10] MEDS: BENZTROPINE MESYLATE 1 MG TAB PO SCH ×2 (08:45→20:36)
[2023-02-10] MEDS: cloZAPine 100 MG TAB PO SCH (20:36)
[2023-02-11] MEDS: DIVALPROEX ER 250 MG TAB.ER.24H PO SCH (09:50)
[2023-02-11] MEDS: cloZAPine 25 MG TAB PO SCH (09:51)
[2023-02-11] MEDS: BENZTROPINE MESYLATE 1 MG TAB PO SCH ×2 (09:51→22:19)
[2023-02-11] MEDS: DIVALPROEX ER 500 MG TAB.ER.24H PO SCH ×2 (09:51→22:20)
[2023-02-11] MEDS: cloZAPine 100 MG TAB PO SCH (22:18)
[2023-02-12] MEDS: cloZAPine 100 MG TAB PO SCH (11:17)
[2023-02-12] MEDS: DIVALPROEX ER 250 MG TAB.ER.24H PO SCH (11:18)
[2023-02-12] MEDS: DIVALPROEX ER 500 MG TAB.ER.24H PO SCH (11:18)
[2023-02-12] MEDS: BENZTROPINE MESYLATE 1 MG TAB PO SCH (11:19)
[2023-02-12 11:27] VITALS: BP 118/78; PULSE 70; RESP 20; TEMP 98
== END 2023-02-12 11:46 | disposition home or self-care (01) ==
LOC: EC 19:46
DX: Z00.8 Encounter for other general examination (principal); F90.9 Attention-deficit hyperactivity disorder, unspecified type; F31.9 Bipolar disorder, unspecified; Z79.899 Other long term (current) drug therapy; Z20.822 Contact with and (suspected) exposure to COVID-19; Y04.2XXA Assault by strike against or bumped into by another person, initial encounter
CPT/HCPCS: 82075; 36415; 80053; 85025; 81001; 87635; 99285; S0136 ×9

== ENCOUNTER 2023-05-16 19:39 | Emergency (ER) | payer OTHER ==
[2023-05-16 19:53] VITALS: RESP 18; TEMP 98.3
--- NOTE | 2023-05-16 20:58 | ED ---
General Adult HPI - General Chief complaint: Psychiatric Symptoms Stated complaint: Behavioral Time Seen by Provider: 05/16/23 20:06 Source: patient, EMS, RN notes reviewed, old records reviewed Mode of arrival: EMS - History of Present Illness Initial comments: 37-year-old male who [facility] his [facility] over concern for agitation and aggression towards staff members. halfway members plan on coming to petition the patient. He has a history of Fragile X syndrome. Patient is developmentally delayed. Patient states that his grandmother just a week ago, when really per staff it was 7 years ago. Patient is currently calm and cooperative. Denies any suicidal homicidal ideations, times complaints. Denies any hallucinations. Presents for further evaluation. Has been seen here previously for similar complaints. - Related Data Home Medications Medication Instructions Recorded Confirmed Docusate [Colace] 200 mg PO HS 06/21/16 02/07/23 Propranolol [Inderal] 40 mg PO TID 06/22/16 02/07/23 Desmopressin Acetate 0.2 mg PO HS 07/10/21 02/07/23 Divalproex ER [Depakote ER] 1,000 mg PO BID 07/10/21 02/07/23 LORazepam [Ativan] 0.5 mg PO DAILY 07/10/21 02/07/23 PARoxetine HCL [Paxil Cr] 37.5 mg PO DAILY 07/10/21 02/07/23 cloZAPine [Clozaril] 200 mg PO HS 07/10/21 02/07/23 Acetaminophen Tab [Tylenol Tab] 1,000 mg PO Q6HR PRN 02/07/23 02/07/23 Benztropine Mesylate [Cogentin] 2 mg PO BID 02/07/23 02/07/23 Divalproex ER [Depakote ER] 250 mg PO DAILY 02/07/23 02/07/23 LORazepam [Ativan] 1 mg PO DAILY@1500 02/07/23 02/07/23 Magnesium Hydroxide [Milk of 2,400 mg PO DAILY PRN 02/07/23 02/07/23 Magnesia] cloZAPine [Clozaril] 25 mg PO DAILY 02/07/23 02/07/23 fluPHENAZine HCl 10 mg PO DAILY@1500 02/07/23 02/07/23 hydrOXYzine pamoate [Vistaril] 50 mg PO DAILY PRN 02/07/23 02/07/23 polyethylene glycoL 3350 [Miralax] 17 gm PO DAILY 02/07/23 02/07/23 Allergies Allergy/AdvReac Type Severity Reaction Status Date / Time No Known Allergies Allergy Verified 05/16/23 19:48 Review of Systems ROS Statement: Those systems with pertinent positive or pertinent negative responses have been documented in the HPI. Review of Systems: CONST: Denies fever EYES: Denies blurry vision ENT: Denies nasal congestion C/V: Denies Chest pain RESP: Denies shortness of breath GI: Denies abdominal pain : Denies dysuria SKIN: Denies rash. MSK: Denies joint pain. NEURO: Denies headache ROS Other: All systems not noted in ROS Statement are negative. Past Medical History Additional Past Medical History / Comment(s): FRAGILE X History of Any Multi-Drug Resistant Organisms: None Reported Past Surgical History: No Surgical Hx Reported Past Psychological History: ADD/ADHD, Bipolar Smoking Status: Never smoker Past Alcohol Use History: None Reported Past Drug Use History: None Reported - Past Family History Father Additional Family Medical History / Comment(s): Patient is unable to provide family history. General Exam - General Exam Comments Initial Comments: General: Appears in no acute distress. HEAD: Normal with no signs of head trauma. EYES: PERRLA, EOMI, conjunctiva normal, no discharge. ENT: Hearing grossly intact, normal oropharynx. RESPIRATORY: Clear breath sounds bilaterally. No wheezes, rales, or rhonchi. C/V: Regular rate and rhythm. S1 and S2 auscultated, peripheral pulses 2+ and intact throughout ABD: Abd is soft, nontender, nondistended EXT: Normal range of motion, no obvious deformity SKIN: No rashes or lesions observed on exposed skin. NEURO: Alert and oriented x 4. Course Vital Signs 05/16/23 19:41 Temperature 98.3 F Pulse Rate 93 Respiratory 18 Rate Blood Pressure 115/95 O2 Sat by Pulse 96 Oximetry Medical Decision Making - Medical Decision Making Was pt. sent in by a medical professional or institution (, PA, HOT PIPE GAUGER, urgent care, hospital, or senior care...) When possible be specific @ -Sent from [facility] for psychiatric evaluation. Did you speak to anyone other than the patient for history (EMS, parent, family, police, friend...)? What history was obtained from this source @ -No Did you review nursing and triage notes (agree or disagree)? Why? @ -I reviewed and agree with nursing and triage notes Were old charts reviewed (outside hosp., previous admission, EMS record, old EKG, old radiological studies, urgent care reports/EKG's, senior care records)? Report findings @ -Old charts reviewed Differential Diagnosis (chest pain, altered mental status, abdominal pain women, abdominal pain men, vaginal bleeding, weakness, fever, dyspnea, syncope, headache, dizziness, GI bleed, back pain, seizure, CVA, palpatations, mental health, musculoskeletal)? @ -Differential Mental Health Depression, anxiety, bipolar, psychosis, schizophrenia, borderline personality, situational depression, adjustment disorder, behavioral disorder, brain tumor, malingering, substance abuse, encephalopathy, medication reaction, dementia, hypothyroidism, degenerative neurologic disorder, lupus.... This is not meant to be all-inclusive list EKG interpreted by me (3pts min.). @ -None done X-rays interpreted by me (1pt min.). @ -None done CT interpreted by me (1pt min.). @ -None done U/S interpreted by me (1pt. min.). @ -None done What testing was considered but not performed or refused? (CT, X-rays, U/S, labs)? Why? @ -None What meds were considered but not given or refused? Why? @ -None Did you discuss the management of the patient with other professionals (professionals i.e. , PA, HOT PIPE GAUGER, lab, RT, psych nurse, social worker palliative care, tomato grader, teacher, chief contract officer, trimming caser)? Give summary @ -EPS notified of the consult. Was smoking cessation discussed for >3mins.? @ -No Was critical care preformed (if so, how long)? @ -No Were there social determinants of health that impacted care today? How? (Homelessness, low income, unemployed, alcoholism, drug addiction, transportation, low edu. Level, literacy, decrease access to med. care, assisted, rehab)? @ -No Was there de-escalation of care discussed even if they declined (Discuss DNR or withdrawal of care, Hospice)? DNR status @ -No What co-morbidities impacted this encounter? (DM, HTN, Smoking, COPD, CAD, Cancer, CVA, ARF, Chemo, Hep., AIDS, mental health diagnosis, sleep apnea, morbid obesity)? @ -None Was patient admitted / discharged? Hospital course, mention meds given and route, prescriptions, significant lab abnormalities, going to OR and other pertinent info. @ -Based on the patient's presentation and physical exam, patient presents emergency department for psychiatric evaluation after he sent from [facility]. They do plan on presenting for petition and the patient. Patient has not yet been petition. However patient sounds like he has been aggressive towards staff members and he has been evaluated mental health services before. Patient was placed in green scrubs. Sitter was ordered. Vital signs within acceptable limits. BAT is 0. UDS is pending. At this time, patient is medically cleared for evaluation by psychiatry. Disposition pending psychiatric evaluation. EPS notified of the consult. EPS evaluated the patient. Patient is having repetitive behaviors. Does not meet inpatient criteria. Patient will be transferred back to his facility. They will have a conference call with [facility] in the morning. Facility was in agreement this plan. Patient in agreement this plan. Undiagnosed new problem with uncertain prognosis? @ -No Drug Therapy requiring intensive monitoring for toxicity (Heparin, Nitro, Insulin, Cardizem)? @ -No Were any procedures done? @ -No Diagnosis/symptom? @ -Encounter for psychiatric evaluation Acute, or Chronic, or Acute on Chronic? @ -Acute Uncomplicated (without systemic symptoms) or Complicated (systemic symptoms)? @ -Uncomplicated Side effects of treatment? @ -None Exacerbation, Progression, or Severe Exacerbation] @ -No Poses a threat to life or bodily function? @ -No Disposition Clinical Impression: Encounter for psychiatric assessment Disposition: HOME SELF-CARE Condition: Good Additional Instructions: follow up with [facility] Is patient prescribed a controlled substance at d/c from ED?: No Referrals: None,Stated [Primary Care Provider] - 1-2 days Time of Disposition: 22:24
[2023-05-16 22:50] VITALS: BP 118/70; PULSE 76
== END 2023-05-16 22:38 | disposition home or self-care (01) ==
LOC: EC 19:39
DX: Z00.8 Encounter for other general examination (principal)
CPT/HCPCS: 82075; 99285

== ENCOUNTER 2023-05-23 18:53 | Emergency (ER) | payer OTHER ==
--- NOTE | 2023-05-23 19:13 | ED ---
General Adult HPI - General Chief complaint: Psychiatric Symptoms Stated complaint: Mental Health Time Seen by Provider: 05/23/23 18:56 Source: EMS Mode of arrival: EMS Limitations: altered mental status - History of Present Illness Initial comments: Patient sent to the ED by ambulance from his [facility] for evaluation. Patient has cognitive impairment, so history from the patient is very limited. Per EMS report, the fci reports that patient has been having violent outbursts and throwing thing. Patient has a history of exhibiting similar behavior in the past. No other history is available at this time. - Related Data Home Medications Medication Instructions Recorded Confirmed Docusate [Colace] 200 mg PO HS 06/21/16 05/23/23 Propranolol [Inderal] 40 mg PO TID 06/22/16 05/23/23 Desmopressin Acetate 0.2 mg PO HS 07/10/21 05/23/23 Divalproex ER [Depakote ER] 1,000 mg PO BID 07/10/21 05/23/23 PARoxetine HCL [Paxil Cr] 37.5 mg PO DAILY 07/10/21 05/23/23 cloZAPine [Clozaril] 200 mg PO HS 07/10/21 05/23/23 Acetaminophen Tab [Tylenol Tab] 1,000 mg PO DIRECTED PRN 02/07/23 05/23/23 Benztropine Mesylate [Cogentin] 2 mg PO BID 02/07/23 05/23/23 Divalproex ER [Depakote ER] 250 mg PO DAILY 02/07/23 05/23/23 LORazepam [Ativan] 1 mg PO BID@0900,1500 02/07/23 05/23/23 Magnesium Hydroxide [Milk of 2,400 mg PO DIRECTED PRN 02/07/23 05/23/23 Magnesia] cloZAPine [Clozaril] 25 mg PO DAILY 02/07/23 05/23/23 fluPHENAZine HCl 10 mg PO DAILY@1500 02/07/23 05/23/23 hydrOXYzine pamoate [Vistaril] 50 mg PO DAILY PRN 02/07/23 05/23/23 polyethylene glycoL 3350 [Miralax] 17 gm PO DAILY 02/07/23 05/23/23 Guaifenesin/Pseudoephedrne HCl 1 tab PO BID PRN 05/23/23 05/23/23 [Mucinex D ER 1,200-120 mg Tab] Na Phos,M-B/Na Phos,Di-Ba [Fleet 133 ml RECTAL DIRECTED PRN 05/23/23 05/23/23 Adult] fluPHENAZine [Prolixin 5MG] 5 mg PO DAILY@1500 05/23/23 05/23/23 Allergies Allergy/AdvReac Type Severity Reaction Status Date / Time No Known Allergies Allergy Verified 05/23/23 19:48 Review of Systems ROS Statement: Those systems with pertinent positive or pertinent negative responses have been documented in the HPI. ROS Other: All systems not noted in ROS Statement are negative. Limitations: ROS unobtainable due to patients medical condition Past Medical History Additional Past Medical History / Comment(s): FRAGILE X, cognitive impairment History of Any Multi-Drug Resistant Organisms: None Reported Past Surgical History: No Surgical Hx Reported Past Psychological History: ADD/ADHD, Bipolar Smoking Status: Never smoker Past Alcohol Use History: None Reported Past Drug Use History: None Reported - Past Family History Father Additional Family Medical History / Comment(s): Patient is unable to provide family history. General Exam Limitations: altered mental status General appearance: alert Head exam: Present: atraumatic, normocephalic Eye exam: Present: normal appearance, PERRL ENT exam: Present: mucous membranes moist Respiratory exam: Present: normal lung sounds bilaterally. Absent: respiratory distress, wheezes, rales, rhonchi, stridor Cardiovascular Exam: Present: regular rate, normal rhythm, normal heart sounds, other (Normal radial pulses bilaterally) GI/Abdominal exam: Present: soft. Absent: distended, tenderness, guarding Extremities exam: Present: normal inspection. Absent: tenderness, pedal edema Neurological exam: Present: alert Psychiatric exam: Present: other (Patient is not agitated or violent at the time of my evaluation) Skin exam: Present: warm, dry, intact, normal color Course Vital Signs 05/23/23 18:56 Temperature 97.6 F Pulse Rate 90 Respiratory 18 Rate Blood Pressure 110/74 O2 Sat by Pulse 96 Oximetry Medical Decision Making - Medical Decision Making Was pt. sent in by a medical professional or institution (, PA, MENTAL HEALTH AIDES TEACHER, urgent care, hospital, or fci...) When possible be specific @ -No Did you speak to anyone other than the patient for history (EMS, parent, family, police, friend...)? What history was obtained from this source @ -History was obtained from EMS. Did you review nursing and triage notes (agree or disagree)? Why? @ -I reviewed and agree with nursing and triage notes Were old charts reviewed (outside hosp., previous admission, EMS record, old EKG, old radiological studies, urgent care reports/EKG's, fci records)? Report findings @ -No old charts were reviewed Differential Diagnosis (chest pain, altered mental status, abdominal pain women, abdominal pain men, vaginal bleeding, weakness, fever, dyspnea, syncope, headache, dizziness, GI bleed, back pain, seizure, CVA, palpatations, mental health, musculoskeletal)? @ -Cognitive impairment, behavioral issues, violent behavior, anxiety, depression, mental health disease, infection, medication reaction, subtherapeutic medication, electrolyte abnormality EKG interpreted by me (3pts min.). @ -None done X-rays interpreted by me (1pt min.). @ -None done CT interpreted by me (1pt min.). @ -None done U/S interpreted by me (1pt. min.). @ -None done What testing was considered but not performed or refused? (CT, X-rays, U/S, labs)? Why? @ -None What meds were considered but not given or refused? Why? @ -None Did you discuss the management of the patient with other professionals (professionals i.e. , PA, MENTAL HEALTH AIDES TEACHER, lab, RT, psych nurse, social and political studies professor, manager corporate responsibility, teacher, special forces warrant officer, rifle case repairer)? Give summary @ -No Was smoking cessation discussed for >3mins.? @ -No Was critical care preformed (if so, how long)? @ -No Were there social determinants of health that impacted care today? How? (H omelessness, low income, unemployed, alcoholism, drug addiction, transportation, low edu. Level, literacy, decrease access to med. care, shelter, rehab)? @ -No Was there de-escalation of care discussed even if they declined (Discuss DNR or withdrawal of care, Hospice)? DNR status @ -No What co-morbidities impacted this encounter? (DM, HTN, Smoking, COPD, CAD, Cancer, CVA, ARF, Chemo, Hep., AIDS, mental health diagnosis, sleep apnea, morbid obesity)? @ -Cognitive impairment Was patient admitted / discharged? Hospital course, mention meds given and route, prescriptions, significant lab abnormalities, going to OR and other pertinent info. @ -Patient has been alert and calm while in the ED without any explosive outbursts or violent behavior. Patient's vital signs are within normal limits. Patient's labs are fairly unremarkable, including a therapeutic valproic acid level. I do not suspect an emergent medical condition at this time. Will discharge patient back to his fci at this time. Undiagnosed new problem with uncertain prognosis? @ -No Drug Therapy requiring intensive monitoring for toxicity (Heparin, Nitro, Insulin, Cardizem)? @ -No Were any procedures done? @ -No Diagnosis/symptom? @ -Cognitive impairment with reported explosive outbursts Acute, or Chronic, or Acute on Chronic? @ -Acute on chronic Uncomplicated (without systemic symptoms) or Complicated (systemic symptoms)? @ -Default Side effects of treatment? @ -No Exacerbation, Progression, or Severe Exacerbation? @ -No Poses a threat to life or bodily function? How? (Chest pain, [place], [place], pneumonia, PE, COPD, DKA, ARF, appy, cholecystitis, CVA, Diverticulitis, Homicidal, Suicidal, threat to staff... and all critical care pts) @ -No - Lab Data Result diagrams: 05/23/23 19:16 05/23/23 19:16 Lab Results 05/23/23 05/23/23 Range/Units 19:16 19:16 WBC 5.5 (3.8-10.6) k/uL RBC 4.59 (4.30-5.90) m/uL Hgb 14.1 (13.0-17.5) gm/dL Hct 42.1 (39.0-53.0) % MCV 91.6 (80.0-100.0) fL MCH 30.6 (25.0-35.0) pg MCHC 33.4 (31.0-37.0) g/dL RDW 13.9 (11.5-15.5) % Plt Count 140 L (150-450) k/uL MPV 7.5 Neutrophils % 54 % Lymphocytes % 35 % Monocytes % 9 % Eosinophils % 0 % Basophils % 0 % Neutrophils # 3.0 (1.3-7.7) k/uL Lymphocytes # 1.9 (1.0-4.8) k/uL Monocytes # 0.5 (0-1.0) k/uL Eosinophils # 0.0 (0-0.7) k/uL Basophils # 0.0 (0-0.2) k/uL Sodium 140 (137-145) mmol/L Potassium 4.0 (3.5-5.1) mmol/L Chloride 111 H (98-107) mmol/L Carbon Dioxide 22 (22-30) mmol/L Anion Gap 7 mmol/L BUN 9 (9-20) mg/dL Creatinine 0.47 L (0.66-1.25) mg/dL Est GFR (CKD-EPI)AfAm >90 (>60 ml/min/1.73 sqM) Est GFR (CKD-EPI)NonAf >90 (>60 ml/min/1.73 sqM) Glucose 116 H (74-99) mg/dL Calcium 8.9 (8.4-10.2) mg/dL Total Bilirubin 0.4 (0.2-1.3) mg/dL AST 18 (17-59) U/L ALT 13 (4-49) U/L Alkaline Phosphatase 64 (38-126) U/L Total Protein 6.6 (6.3-8.2) g/dL Albumin 4.0 (3.5-5.0) g/dL Valproic Acid 68.7 ug/mL Disposition Clinical Impression: Outbursts of explosive behavior Disposition: HOME SELF-CARE Condition: Stable Instructions (If sedation given, give patient instructions): Cognitive Behavioral Therapy (ED) Additional Instructions: Have Max return to the ER should he develop any difficulty breathing a fever, persistent vomiting, or any other concerning signs or symptoms. Have Max follow-up closely with his primary care provider. Is patient prescribed a controlled substance at d/c from ED?: No Referrals: None,Stated [Primary Care Provider] - 1-2 days Zac Darby MD [STAFF PHYSICIAN] - 1-2 days Time of Disposition: 20:33
[2023-05-23 19:33] LABS: Basophils % (A) 0 %; Eosinophils % (A) 0 %; HCT 42.1 % (39.0-53.0); HGB 14.1 gm/dL (13.0-17.5); Lymphocytes # (A) 1.9 k/uL (1.0-4.8); Lymphocytes % (A) 35 %; MCH 30.6 pg (25.0-35.0); MCHC 33.4 g/dL (31.0-37.0); MCV 91.6 fL (80.0-100.0); Mean Platelet Volume 7.5; Monocytes # (A) 0.5 k/uL (0-1.0); Monocytes % (A) 9 %; Neutrophils % (A) 54 %; Platelet Count 140 k/uL (150-450); RBC 4.59 m/uL (4.30-5.90); RDW 13.9 % (11.5-15.5); WBC 5.5 k/uL (3.8-10.6)
[2023-05-23 19:44] LABS: ALT 13 U/L (4-49); AST 18 U/L (17-59); African American GFR (CKD) >90 (>60 ml/min/1.73 sqM); Alkaline Phosphatase 64 U/L (38-126); Anion Gap 7 mmol/L; Blood Urea Nitrogen 9 mg/dL (9-20); Calcium 8.9 mg/dL (8.4-10.2); Carbon Dioxide 22 mmol/L (22-30); Chloride 111 mmol/L (98-107); Glucose 116 mg/dL (74-99); Non-African American GFR(CKD) >90 (>60 ml/min/1.73 sqM); Sodium 140 mmol/L (137-145); Total Bilirubin 0.4 mg/dL (0.2-1.3); Total Protein 6.6 g/dL (6.3-8.2)
[2023-05-23 19:50] LABS: Valproic Acid (Depakene) 68.7 ug/mL
[2023-05-23 20:02] VITALS: RESP 18; TEMP 97.6
[2023-05-23 21:16] VITALS: BP 104/75; PULSE 98
== END 2023-05-23 21:02 | disposition home or self-care (01) ==
LOC: EC 18:53
DX: F63.81 Intermittent explosive disorder (principal); F90.9 Attention-deficit hyperactivity disorder, unspecified type; F31.9 Bipolar disorder, unspecified; Z79.899 Other long term (current) drug therapy
CPT/HCPCS: 36415; 80053; 80164; 85025; 99285